=== PATIENT | female | born 1965 | race Asian ===

== ENCOUNTER 2017-11-11 08:30 | Emergency (ER) | payer OTHER ==
[2017-11-11 09:51] LABS: ABNORMAL IP MESSAGE 1; HEMATOCRIT 20.1 % (37.0-47.0); MEAN CORPUSCULAR HEMOGLOBIN 31.3 pg (29.0-33.0); MEAN CORPUSCULAR HGB CONC 34.8 g/dl (32.0-37.0); MEAN CORPUSCULAR VOLUME 89.7 fl (82.0-101.0); MEAN PLATELET VOLUME 9.4 fl (7.4-10.4); RED BLOOD COUNT 2.24 10^6/ul (4.20-5.40)
[2017-11-11 09:51] LABS: WHITE BLOOD COUNT 2.5 10^3/ul (4.8-10.8)
[2017-11-11 09:57] LABS: POSITIVE DIFF @See below
[2017-11-11 10:02] LABS: ADD MAN DIFF? YES; PLATELET COUNT 28 10^3/UL (140-415)
[2017-11-11 10:17] LABS: INR 0.86; PROTIME 11.8 Sec (11.9-14.9); PT RATIO 0.9
[2017-11-11 10:18] LABS: PARTIAL THROMBOPLASTIN TIME 34.2 Sec (25.0-35.0)
[2017-11-11 10:21] LABS: ALANINE AMINOTRANSFERASE 72 IU/L (13-69); ALBUMIN 4.3 g/dl (3.3-4.9); ALBUMIN/GLOBULIN RATIO 1.48; ALKALINE PHOSPHATASE 175 IU/L (42-121); ANION GAP 14 (8-16); ASPARTATE AMINO TRANSFERASE 41 IU/L (15-46); BILIRUBIN,INDIRECT 0.3 mg/dl (0-1.1); BILIRUBIN,TOTAL 0.3 mg/dl (0.2-1.3); BLOOD UREA NITROGEN 17 mg/dl (7-20); CALCIUM 9.5 mg/dl (8.4-10.2); CARBON DIOXIDE 28 mmol/L (21-31); CHLORIDE 106 mmol/L (97-110); CREATININE 0.49 mg/dl (0.44-1.00); GLUCOSE 86 mg/dl (70-220); SODIUM 144 mmol/L (135-144); TOTAL PROTEIN 7.2 g/dl (6.1-8.1)
[2017-11-11 10:44] LABS: ANISOCYTOSIS 2+ (0-0); BAND NEUTROPHILS % (M) 3 % (0-4); BASOPHILS % (M) 1 % (0-2); LYMPHOCYTES #M 1.7 10^3/ul (0.8-2.9); LYMPHOCYTES % (M) 71 % (15-51); MICROCYTOSIS 2+ (0-0); MONOCYTES % (M) 2 % (0-11); PLATELET ESTIMATE SIG DECREASED; POLYCHROMASIA 3+ (0-0); RBC MORPHOLOGY COMMENT @See below; REACTIVE LYMPHOCYTES% (M) 2 % (0-0); SEG NEUT #M 0.5 10^3/ul (1.6-7.5); SEGMENTED NEUTROPHILS (M) % 21 % (39-77); SMUDGE%M 3 % (0-0); WBC MORPHOLOGY COMMENT @See below
[2017-11-11 11:36] LABS: IMMEDIATE SPIN CROSSMATCH 1 1
[2017-11-11 15:23] LABS: TYPE AND SCREEN 1
== END 2017-11-11 16:44 | disposition home or self-care (01) ==
LOC: E/R 08:30
PROVIDERS: Pediatrics
DX: D64.9 Anemia, unspecified (principal); D69.6 Thrombocytopenia, unspecified; I10 Essential (primary) hypertension; R40.2142 Coma scale, eyes open, spontaneous, at arrival to emergency department; R40.2252 Coma scale, best verbal response, oriented, at arrival to emergency department; R40.2362 Coma scale, best motor response, obeys commands, at arrival to emergency department
CPT/HCPCS: 36415; 36430; 80053; 85025; 85610; 85730; 86644; 86850; 86900; 86901; 86920; 99285-25

== ENCOUNTER 2017-11-22 09:02 | Emergency (ER) | payer OTHER ==
[2017-11-22 11:20] LABS: ABNORMAL IP MESSAGE 1; HEMATOCRIT 25.5 % (37.0-47.0); MEAN CORPUSCULAR HEMOGLOBIN 30.6 pg (29.0-33.0); MEAN CORPUSCULAR HGB CONC 35.3 g/dl (32.0-37.0); MEAN CORPUSCULAR VOLUME 86.7 fl (82.0-101.0); MEAN PLATELET VOLUME 10.2 fl (7.4-10.4); RED BLOOD COUNT 2.94 10^6/ul (4.20-5.40)
[2017-11-22 11:20] LABS: WHITE BLOOD COUNT 3.6 10^3/ul (4.8-10.8)
[2017-11-22 11:29] LABS: PLATELET COUNT 14 10^3/UL (140-415)
[2017-11-22 11:30] LABS: ADD MAN DIFF? YES; POSITIVE DIFF @See below
[2017-11-22 12:29] LABS: ANISOCYTOSIS 2+ (0-0); BAND NEUTROPHILS #M 0.1 10^3/ul (0.0-0.6); BAND NEUTROPHILS % (M) 4 % (0-4); ERYTHROBLAST% (NRBC) (M) 1 % (0-0); LYMPHOCYTES % (M) 58 % (15-51); MICROCYTOSIS 1+ (0-0); MONOCYTE #M 0.1 10^3/ul (0.3-0.9); MONOCYTES % (M) 4 % (0-11); MYELOCYTES % (M) 1 % (0-0); PLATELET ESTIMATE SIG DECREASED; PLATELET MORPHOLOGY COMMENT @See below; SEG NEUT #M 1.2 10^3/ul (1.6-7.5); SEGMENTED NEUTROPHILS (M) % 33 % (39-77); SMUDGE%M 4 % (0-0)
[2017-11-22 14:35] LABS: IMMEDIATE SPIN CROSSMATCH 1 2
[2017-11-22 17:53] LABS: TYPE AND SCREEN 1
[2017-11-22] MEDS: HYDROCODONE/APAP (5/325) TAB PO (19:04)
== END 2017-11-22 20:30 | disposition left against medical advice (07) ==
LOC: E/R 09:02
DX: D64.9 Anemia, unspecified (principal); R40.2252 Coma scale, best verbal response, oriented, at arrival to emergency department; D69.6 Thrombocytopenia, unspecified; I10 Essential (primary) hypertension; R40.2142 Coma scale, eyes open, spontaneous, at arrival to emergency department; R40.2362 Coma scale, best motor response, obeys commands, at arrival to emergency department
CPT/HCPCS: 36415; 36430; 85025; 86644; 86850; 86900; 86901; 86920; 86945; 99285-25

== ENCOUNTER 2017-12-01 09:57 | Emergency (ER) | payer OTHER ==
[2017-12-01 10:54] LABS: INR 0.75; PROTIME 10.6 Sec (11.9-14.9); PT RATIO 0.8
[2017-12-01 10:55] LABS: PARTIAL THROMBOPLASTIN TIME 33.8 Sec (25.0-35.0)
[2017-12-01 10:56] LABS: WHITE BLOOD COUNT 2.9 10^3/ul (4.8-10.8)
[2017-12-01 10:56] LABS: ABNORMAL IP MESSAGE 1; ANION GAP 17 (8-16); BLOOD UREA NITROGEN 22 mg/dl (7-20); CALCIUM 10.1 mg/dl (8.4-10.2); CARBON DIOXIDE 24 mmol/L (21-31); CHLORIDE 108 mmol/L (97-110); CREATININE 0.53 mg/dl (0.44-1.00); GLUCOSE 111 mg/dl (70-220); HEMATOCRIT 28.9 % (37.0-47.0); HEMOGLOBIN 10.3 g/dl (12.0-16.0); MEAN CORPUSCULAR HEMOGLOBIN 31.6 pg (29.0-33.0); MEAN CORPUSCULAR HGB CONC 35.6 g/dl (32.0-37.0); MEAN CORPUSCULAR VOLUME 88.7 fl (82.0-101.0); MEAN PLATELET VOLUME 9.7 fl (7.4-10.4); POTASSIUM 4.1 mmol/L (3.5-5.1); RED BLOOD COUNT 3.26 10^6/ul (4.20-5.40); RED CELL DISTRIBUTION WIDTH 15.8 % (11.5-14.5); SODIUM 145 mmol/L (135-144)
[2017-12-01 10:58] LABS: ADD MAN DIFF? YES; PLATELET COUNT 25 10^3/UL (140-415); POSITIVE DIFF @See below
[2017-12-01] MEDS: ACETAMINOPHEN 325 MG TAB PO (11:20)
[2017-12-01] MEDS: SOD CHLORIDE 0.9% 250 ML IV* (11:21)
[2017-12-01 11:36] LABS: ANISOCYTOSIS 1+ (0-0); BAND NEUTROPHILS % (M) 2 % (0-4); EOSINOPHILS % (M) 1 % (0-7); ERYTHROBLAST% (NRBC) (M) 1 % (0-0); LYMPHOCYTES #M 1.6 10^3/ul (0.8-2.9); LYMPHOCYTES % (M) 57 % (15-51); MICROCYTOSIS 1+ (0-0); MONOCYTE #M 0.2 10^3/ul (0.3-0.9); MONOCYTES % (M) 8 % (0-11); PLATELET ESTIMATE SIG DECREASED; POLYCHROMASIA 1+ (0-0); RBC MORPHOLOGY COMMENT @See below; REACTIVE LYMPHOCYTES% (M) 2 % (0-0); SEG NEUT #M 0.9 10^3/ul (1.6-7.5); SEGMENTED NEUTROPHILS (M) % 30 % (39-77); SMUDGE%M 26 % (0-0); WBC MORPHOLOGY COMMENT @See below
[2017-12-01 17:35] LABS: TYPE AND SCREEN 1 1
== END 2017-12-01 19:09 | disposition home or self-care (01) ==
LOC: E/R 09:57
DX: D69.6 Thrombocytopenia, unspecified (principal); R40.2252 Coma scale, best verbal response, oriented, at arrival to emergency department; D72.819 Decreased white blood cell count, unspecified; D61.818 Other pancytopenia; K06.8 Other specified disorders of gingiva and edentulous alveolar ridge; R79.89 Other specified abnormal findings of blood chemistry; R40.2142 Coma scale, eyes open, spontaneous, at arrival to emergency department; R40.2362 Coma scale, best motor response, obeys commands, at arrival to emergency department; I10 Essential (primary) hypertension
CPT/HCPCS: 36415; 36430; 80048; 85025; 85610; 85730; 86850; 86900; 86901; 93005; 99285-25

== ENCOUNTER 2017-12-08 12:33 | Emergency (ER) | payer OTHER ==
[2017-12-08 13:00] LABS: WHITE BLOOD COUNT 3.7 10^3/ul (4.8-10.8)
[2017-12-08 13:00] LABS: ABNORMAL IP MESSAGE 1; HEMATOCRIT 26.8 % (37.0-47.0); HEMOGLOBIN 9.5 g/dl (12.0-16.0); MEAN CORPUSCULAR HEMOGLOBIN 31.4 pg (29.0-33.0); MEAN CORPUSCULAR HGB CONC 35.4 g/dl (32.0-37.0); MEAN CORPUSCULAR VOLUME 88.4 fl (82.0-101.0); MEAN PLATELET VOLUME 11.1 fl (7.4-10.4); RED BLOOD COUNT 3.03 10^6/ul (4.20-5.40); RED CELL DISTRIBUTION WIDTH 16.2 % (11.5-14.5)
[2017-12-08 13:04] LABS: POSITIVE DIFF @See below
[2017-12-08 13:05] LABS: ADD MAN DIFF? YES; PLATELET COUNT 8 10^3/UL (140-415)
[2017-12-08] MEDS ORDERED: SOD CHLORIDE 0.9% 250 ML IV (13:09)
[2017-12-08 13:38] LABS: ANISOCYTOSIS 2+ (0-0); BAND NEUTROPHILS #M 0.2 10^3/ul (0.0-0.6); BAND NEUTROPHILS % (M) 7 % (0-4); LYMPHOCYTES #M 1.8 10^3/ul (0.8-2.9); LYMPHOCYTES % (M) 50 % (15-51); MICROCYTOSIS 2+ (0-0); MONOCYTE #M 0.1 10^3/ul (0.3-0.9); MONOCYTES % (M) 5 % (0-11); PLATELET ESTIMATE SIG DECREASED; SEG NEUT #M 1.4 10^3/ul (1.6-7.5); SEGMENTED NEUTROPHILS (M) % 38 % (39-77); SMUDGE%M 2 % (0-0)
[2017-12-08] MEDS: DIPHENHYDRAMINE 50 MG INJ IV ×2 (19:01→22:02)
[2017-12-09 00:22] LABS: TYPE AND SCREEN 1 1
== END 2017-12-09 05:40 | disposition home or self-care (01) ==
LOC: E/R 12-09 05:40
DX: D69.6 Thrombocytopenia, unspecified (principal); I10 Essential (primary) hypertension
CPT/HCPCS: 36430; 85025; 86644; 86850; 86900; 86901; 86945; 96374; 96376; 99285-25

== ENCOUNTER 2017-12-22 17:27 | Emergency (ER) | payer OTHER ==
[2017-12-22] MEDS: SOD CHLORIDE 0.9% 250 ML IV (17:44)
[2017-12-22 18:03] LABS: WHITE BLOOD COUNT 3.5 10^3/ul (4.8-10.8)
[2017-12-22 18:03] LABS: ABNORMAL IP MESSAGE 1; HEMATOCRIT 19.6 % (37.0-47.0); MEAN CORPUSCULAR HGB CONC 35.7 g/dl (32.0-37.0); MEAN CORPUSCULAR VOLUME 89.5 fl (82.0-101.0); MEAN PLATELET VOLUME 11.5 fl (7.4-10.4); NUCLEATED RED BLOOD CELLS% 0.6 /100WBC (0.0-0.0); RED BLOOD COUNT 2.19 10^6/ul (4.20-5.40); RED CELL DISTRIBUTION WIDTH 17.6 % (11.5-14.5)
[2017-12-22 18:12] LABS: POSITIVE DIFF @See below
[2017-12-22 18:13] LABS: ADD MAN DIFF? YES; PLATELET COUNT 11 10^3/UL (140-415)
[2017-12-22 18:20] LABS: ALANINE AMINOTRANSFERASE 56 IU/L (13-69); ALBUMIN 4.4 g/dl (3.3-4.9); ALBUMIN/GLOBULIN RATIO 1.29; ALKALINE PHOSPHATASE 176 IU/L (42-121); ANION GAP 12 (8-16); ASPARTATE AMINO TRANSFERASE 36 IU/L (15-46); BILIRUBIN,INDIRECT 0.6 mg/dl (0-1.1); BILIRUBIN,TOTAL 0.6 mg/dl (0.2-1.3); BLOOD UREA NITROGEN 20 mg/dl (7-20); CALCIUM 9.8 mg/dl (8.4-10.2); CARBON DIOXIDE 28 mmol/L (21-31); CHLORIDE 108 mmol/L (97-110); CREATININE 0.67 mg/dl (0.44-1.00); GLUCOSE 99 mg/dl (70-220); POTASSIUM 4.2 mmol/L (3.5-5.1); SODIUM 144 mmol/L (135-144); TOTAL PROTEIN 7.8 g/dl (6.1-8.1)
[2017-12-22 18:23] LABS: INR 0.83; PROTIME 11.5 Sec (11.9-14.9); PT RATIO 0.9
[2017-12-22 18:42] LABS: ANISOCYTOSIS 2+ (0-0); BAND NEUTROPHILS % (M) 2 % (0-4); LYMPHOCYTES #M 2.2 10^3/ul (0.8-2.9); LYMPHOCYTES % (M) 63 % (15-51); MICROCYTOSIS 1+ (0-0); MONOCYTES % (M) 2 % (0-11); PLATELET ESTIMATE SIG DECREASED; POLYCHROMASIA 1+ (0-0); SEG NEUT #M 1.2 10^3/ul (1.6-7.5); SEGMENTED NEUTROPHILS (M) % 34 % (39-77); SMUDGE%M 26 % (0-0)
[2017-12-22] MEDS: DIPHENHYDRAMINE 50 MG INJ IV ×3 (18:58→21:46)
[2017-12-22 19:06] LABS: TYPE AND SCREEN 1
[2017-12-22 21:11] LABS: IMMEDIATE SPIN CROSSMATCH 1 1
== END 2017-12-23 02:14 | disposition home or self-care (01) ==
LOC: E/R 12-23 02:14
DX: D69.6 Thrombocytopenia, unspecified (principal); D64.9 Anemia, unspecified; I10 Essential (primary) hypertension
CPT/HCPCS: 36430; 80053; 85025; 85610; 86644; 86850; 86900; 86901; 86920; 86945; 96374; 96376; 99285-25

== ENCOUNTER 2017-12-28 16:05 | Emergency (ER) | payer OTHER ==
[2017-12-28 18:45] LABS: ABNORMAL IP MESSAGE 1; HEMATOCRIT 25.9 % (37.0-47.0); HEMOGLOBIN 9.2 g/dl (12.0-16.0); MEAN CORPUSCULAR HEMOGLOBIN 31.7 pg (29.0-33.0); MEAN CORPUSCULAR HGB CONC 35.5 g/dl (32.0-37.0); MEAN CORPUSCULAR VOLUME 89.3 fl (82.0-101.0); MEAN PLATELET VOLUME 12.1 fl (7.4-10.4); RED CELL DISTRIBUTION WIDTH 16.2 % (11.5-14.5)
[2017-12-28 18:45] LABS: WHITE BLOOD COUNT 3.8 10^3/ul (4.8-10.8)
[2017-12-28 19:03] LABS: ADD MAN DIFF? YES; PLATELET COUNT 12 10^3/UL (140-415); POSITIVE DIFF @See below
[2017-12-28 19:05] LABS: ANION GAP 16 (8-16); BLOOD UREA NITROGEN 18 mg/dl (7-20); CARBON DIOXIDE 28 mmol/L (21-31); CHLORIDE 102 mmol/L (97-110); CREATININE 0.58 mg/dl (0.44-1.00); GLUCOSE 94 mg/dl (70-220); POTASSIUM 3.7 mmol/L (3.5-5.1); SODIUM 142 mmol/L (135-144)
[2017-12-28 19:56] LABS: PT RATIO 0.9
[2017-12-28 20:00] LABS: INR 0.87; PARTIAL THROMBOPLASTIN TIME 32.7 Sec (25.0-35.0); PROTIME 11.9 Sec (11.9-14.9)
[2017-12-28 20:19] LABS: ANISOCYTOSIS 2+ (0-0); BAND NEUTROPHILS #M 0.3 10^3/ul (0.0-0.6); BAND NEUTROPHILS % (M) 8 % (0-4); BASOPHILS % (M) 1 % (0-2); ERYTHROBLAST% (NRBC) (M) 1 % (0-0); GIANT THROMBO% (M) 1 % (0-0); LYMPHOCYTES #M 1.6 10^3/ul (0.8-2.9); LYMPHOCYTES % (M) 43 % (15-51); MICROCYTOSIS 2+ (0-0); MONOCYTE #M 0.1 10^3/ul (0.3-0.9); MONOCYTES % (M) 4 % (0-11); PLATELET ESTIMATE SIG DECREASED; SEG NEUT #M 1.7 10^3/ul (1.6-7.5); SEGMENTED NEUTROPHILS (M) % 44 % (39-77); SMUDGE%M 17 % (0-0)
[2017-12-28 23:04] LABS: TYPE AND SCREEN 1 1
[2017-12-28] MEDS: DIPHENHYDRAMINE 50 MG INJ IV (23:16)
[2017-12-28] MEDS: SOD CHLORIDE 0.9% 250 ML IV (23:16)
== END 2017-12-29 02:00 | disposition home or self-care (01) ==
LOC: E/R 12-29 02:00
DX: D61.818 Other pancytopenia (principal); D64.9 Anemia, unspecified; I10 Essential (primary) hypertension
CPT/HCPCS: 36415; 36430; 80048; 85025; 85610; 85730; 86850; 86900; 86901; 86945; 96374; 99285-25

== ENCOUNTER 2017-12-29 11:56 | Emergency (ER) | payer OTHER ==
[2017-12-29 13:17] LABS: ADD MAN DIFF? NO
[2017-12-29 13:53] LABS: WHITE BLOOD COUNT 3.4 10^3/ul (4.8-10.8)
[2017-12-29 13:53] LABS: ABNORMAL IP MESSAGE 1; BASOPHILS % 0.3 % (0.0-2.0); EOSINOPHILS % 0.3 % (0.0-7.0); HEMATOCRIT 24.8 % (37.0-47.0); HEMOGLOBIN 8.7 g/dl (12.0-16.0); IMMATURE GRANS #M 0.01 10^3/ul; IMMATURE GRANS % (M) 0.3 %; LYMPHOCYTES # 2.1 10^3/ul (0.8-2.9); LYMPHOCYTES % 60.4 % (15.0-51.0); MEAN CORPUSCULAR HEMOGLOBIN 31.1 pg (29.0-33.0); MEAN CORPUSCULAR HGB CONC 35.1 g/dl (32.0-37.0); MEAN CORPUSCULAR VOLUME 88.6 fl (82.0-101.0); MEAN PLATELET VOLUME 10.1 fl (7.4-10.4); MONOCYTE # 0.3 10^3/ul (0.3-0.9); NEUTROPHILS % 28.7 % (39.0-77.0); PLATELET COUNT 50 10^3/UL (140-415); POSITIVE DIFF @See below; RED CELL DISTRIBUTION WIDTH 16.7 % (11.5-14.5)
== END 2017-12-29 14:44 | disposition home or self-care (01) ==
LOC: E/R 11:56
DX: D61.818 Other pancytopenia (principal); I10 Essential (primary) hypertension
CPT/HCPCS: 85025; 99283

== ENCOUNTER 2018-01-05 18:50 | Emergency (ER) | payer SELFPAY, OTHER | END 2018-01-05 20:25 | disposition left against medical advice (07) | LOC: E/R 18:50 | DX: Z53.21 Procedure and treatment not carried out due to patient leaving prior to being seen by health care provider (principal) ==

== ENCOUNTER 2018-03-06 13:07 | Observation (INO) | payer OTHER ==
[2018-03-06 14:52] LABS: ADD MAN DIFF? NO
[2018-03-06 15:04] LABS: ABNORMAL IP MESSAGE 1; HEMATOCRIT 21.1 % (37.0-47.0); HEMOGLOBIN 7.1 g/dl (12.0-16.0); MEAN CORPUSCULAR HEMOGLOBIN 32.3 pg (29.0-33.0); MEAN CORPUSCULAR HGB CONC 33.6 g/dl (32.0-37.0); MEAN CORPUSCULAR VOLUME 95.9 fl (82.0-101.0); MEAN PLATELET VOLUME 10.3 fl (7.4-10.4); RED CELL DISTRIBUTION WIDTH 20.3 % (11.5-14.5)
[2018-03-06 15:04] LABS: WHITE BLOOD COUNT 2.7 10^3/ul (4.8-10.8)
[2018-03-06 15:20] LABS: POSITIVE DIFF @See below
[2018-03-06 15:21] LABS: ANION GAP 12 (8-16); BLOOD UREA NITROGEN 14 mg/dl (7-20); CALCIUM 9.7 mg/dl (8.4-10.2); CARBON DIOXIDE 30 mmol/L (21-31); CHLORIDE 109 mmol/L (97-110); CREATININE 0.85 mg/dl (0.44-1.00); GLUCOSE 100 mg/dl (70-220); POTASSIUM 3.8 mmol/L (3.5-5.1); SODIUM 147 mmol/L (135-144)
[2018-03-06 15:22] LABS: PLATELET COUNT 8 10^3/UL (140-415)
[2018-03-06 15:23] LABS: INR 0.81; PROTIME 11.2 Sec (11.9-14.9); PT RATIO 0.9
[2018-03-06 15:55] LABS: ANISOCYTOSIS 1+ (0-0); BAND NEUTROPHILS % (M) 2 % (0-4); BASOPHILS % (M) 1 % (0-2); EOSINOPHILS % (M) 1 % (0-7); HYPOCHROMASIA 2+ (0-0); LYMPHOCYTES #M 1.5 10^3/ul (0.8-2.9); LYMPHOCYTES % (M) 57 % (15-51); METAMYELOCYTES %M 1 % (0-0); MICROCYTOSIS 1+ (0-0); MONOCYTE #M 0.1 10^3/ul (0.3-0.9); MONOCYTES % (M) 5 % (0-11); MYELOCYTES % (M) 3 % (0-0); PLATELET ESTIMATE SIG DECREASED; SEG NEUT #M 0.8 10^3/ul (1.6-7.5); SEGMENTED NEUTROPHILS (M) % 30 % (39-77); SMUDGE%M 2 % (0-0)
[2018-03-06] MEDS ORDERED: ONDANSETRON 4 MG INJ IV (18:00)
[2018-03-06] MEDS ORDERED: ACETAMINOPHEN 325 MG TAB PO (18:00)
[2018-03-06] MEDS ORDERED: HYDROCODONE/APAP (5/325) TAB PO (18:00)
[2018-03-06] MEDS ORDERED: ALPRAZOLAM 1 MG TAB PO (18:00)
[2018-03-06] MEDS ORDERED: MAGNESIUM HYDROXIDE 30ML CUP PO (18:00)
[2018-03-06] MEDS ORDERED: NACL 0.9% 3 ML SYG IV (18:00)
[2018-03-06] MEDS: SOD CHLORIDE 0.9% 1,000 ML IV (18:37)
[2018-03-07] MEDS: DIPHENHYDRAMINE 50 MG INJ IV ×2 (00:04→10:10)
[2018-03-07] MEDS: ACETAMINOPHEN 325 MG TAB PO (00:04)
[2018-03-07 04:47] LABS: TYPE AND SCREEN 1
[2018-03-07] MEDS: PANTOPRAZOLE (EC) 40 MG TAB PO (05:36)
[2018-03-07 08:37] LABS: ABNORMAL IP MESSAGE 1; HEMATOCRIT 19.6 % (37.0-47.0); MEAN CORPUSCULAR HEMOGLOBIN 31.9 pg (29.0-33.0); MEAN CORPUSCULAR HGB CONC 33.2 g/dl (32.0-37.0); MEAN CORPUSCULAR VOLUME 96.1 fl (82.0-101.0); MEAN PLATELET VOLUME 9.4 fl (7.4-10.4); NUCLEATED RED BLOOD CELLS% 0.7 /100WBC (0.0-0.0); PLATELET COUNT 68 10^3/UL (140-415); RED BLOOD COUNT 2.04 10^6/ul (4.20-5.40); RED CELL DISTRIBUTION WIDTH 20.4 % (11.5-14.5)
[2018-03-07 08:37] LABS: WHITE BLOOD COUNT 3.1 10^3/ul (4.8-10.8)
[2018-03-07 08:47] LABS: ADD MAN DIFF? YES; HEMOGLOBIN 6.5 g/dl (12.0-16.0); POSITIVE DIFF @See below
[2018-03-07 08:59] LABS: ANION GAP 9 (8-16); BLOOD UREA NITROGEN 13 mg/dl (7-20); CALCIUM 9.3 mg/dl (8.4-10.2); CARBON DIOXIDE 30 mmol/L (21-31); CHLORIDE 110 mmol/L (97-110); GLUCOSE 98 mg/dl (70-220); MAGNESIUM 1.8 mg/dl (1.7-2.5); PHOSPHORUS 4.2 mg/dl (2.5-4.9); POTASSIUM 4.2 mmol/L (3.5-5.1); SODIUM 145 mmol/L (135-144)
[2018-03-07 09:54] LABS: ANISOCYTOSIS 1+ (0-0); BAND NEUTROPHILS #M 0.2 10^3/ul (0.0-0.6); BAND NEUTROPHILS % (M) 8 % (0-4); ERYTHROBLAST% (NRBC) (M) 1 % (0-0); LYMPHOCYTES #M 1.3 10^3/ul (0.8-2.9); LYMPHOCYTES % (M) 44 % (15-51); MICROCYTOSIS 1+ (0-0); MONOCYTES % (M) 2 % (0-11); MYELOCYTES % (M) 1 % (0-0); PLATELET ESTIMATE DECREASED; SEG NEUT #M 1.4 10^3/ul (1.6-7.5); SEGMENTED NEUTROPHILS (M) % 45 % (39-77); SMUDGE%M 28 % (0-0)
[2018-03-07] MEDS: LORAZEPAM 0.5 MG TAB PO ×2 (10:10→18:12)
[2018-03-07] MEDS: DOCUSATE SODIUM 100 MG CAP PO (10:10)
[2018-03-07] MEDS: SOD CHLORIDE 0.9% 1,000 ML IV (12:49)
[2018-03-07 16:32] LABS: IMMEDIATE SPIN CROSSMATCH 1 4
[2018-03-07] MEDS: ZOLPIDEM 5 MG TAB PO (20:13)
[2018-03-07] MEDS: ALPRAZOLAM 0.5 MG TAB PO (21:17)
[2018-03-08 01:26] LABS: WHITE BLOOD COUNT 3.5 10^3/ul (4.8-10.8)
[2018-03-08 01:26] LABS: ABNORMAL IP MESSAGE 1; HEMOGLOBIN 10.3 g/dl (12.0-16.0); MEAN CORPUSCULAR HEMOGLOBIN 31.8 pg (29.0-33.0); MEAN CORPUSCULAR HGB CONC 34.3 g/dl (32.0-37.0); MEAN CORPUSCULAR VOLUME 92.6 fl (82.0-101.0); MEAN PLATELET VOLUME 9.5 fl (7.4-10.4); NUCLEATED RED BLOOD CELLS% 0.6 /100WBC (0.0-0.0); PLATELET COUNT 65 10^3/UL (140-415); RED BLOOD COUNT 3.24 10^6/ul (4.20-5.40); RED CELL DISTRIBUTION WIDTH 17.4 % (11.5-14.5)
[2018-03-08 01:40] LABS: ADD MAN DIFF? YES; POSITIVE DIFF @See below
[2018-03-08 03:43] LABS: ANISOCYTOSIS 1+ (0-0); BAND NEUTROPHILS #M 0.3 10^3/ul (0.0-0.6); BAND NEUTROPHILS % (M) 9 % (0-4); EOSINOPHILS % (M) 1 % (0-7); ERYTHROBLAST% (NRBC) (M) 1 % (0-0); LYMPHOCYTES #M 1.6 10^3/ul (0.8-2.9); LYMPHOCYTES % (M) 46 % (15-51); MICROCYTOSIS 1+ (0-0); MONOCYTE #M 0.3 10^3/ul (0.3-0.9); MONOCYTES % (M) 11 % (0-11); MYELOCYTES % (M) 1 % (0-0); PLATELET ESTIMATE DECREASED; PROMYELOCYTES % (M) 2 % (0-0); REACTIVE LYMPHOCYTES #M 0.1 10^3/ul (0.0-0.0); REACTIVE LYMPHOCYTES% (M) 5 % (0-0); SEG NEUT #M 0.9 10^3/ul (1.6-7.5); SEGMENTED NEUTROPHILS (M) % 25 % (39-77); SMUDGE%M 8 % (0-0)
[2018-03-08] MEDS: PANTOPRAZOLE (EC) 40 MG TAB PO (05:47)
== END 2018-03-08 14:00 | disposition home or self-care (01) ==
LOC: E/R 13:07 → PP2 16:50
DX: D46.9 Myelodysplastic syndrome, unspecified (principal); D69.6 Thrombocytopenia, unspecified; F41.9 Anxiety disorder, unspecified
CPT/HCPCS: 36415; 36430; 80048; 83735; 84100; 85025; 85610; 85730; 86850; 86900; 86901; 86920; 93005; 99285-25; G0378

== ENCOUNTER 2018-03-20 18:22 | Inpatient (IN) | payer OTHER ==
[2018-03-20 21:01] LABS: ABNORMAL IP MESSAGE 1; HEMATOCRIT 27.6 % (37.0-47.0); HEMOGLOBIN 9.5 g/dl (12.0-16.0); MEAN CORPUSCULAR HEMOGLOBIN 32.4 pg (29.0-33.0); MEAN CORPUSCULAR HGB CONC 34.4 g/dl (32.0-37.0); MEAN CORPUSCULAR VOLUME 94.2 fl (82.0-101.0); MEAN PLATELET VOLUME 10.4 fl (7.4-10.4); NUCLEATED RED BLOOD CELLS% 0.5 /100WBC (0.0-0.0); RED BLOOD COUNT 2.93 10^6/ul (4.20-5.40); RED CELL DISTRIBUTION WIDTH 17.7 % (11.5-14.5)
[2018-03-20 21:01] LABS: WHITE BLOOD COUNT 3.8 10^3/ul (4.8-10.8)
[2018-03-20 21:05] LABS: ADD MAN DIFF? YES; PLATELET COUNT 13 10^3/UL (140-415); POSITIVE DIFF @See below
[2018-03-20 21:08] LABS: ALANINE AMINOTRANSFERASE 60 IU/L (13-69); ALBUMIN 4.2 g/dl (3.3-4.9); ALBUMIN/GLOBULIN RATIO 1.16; ALKALINE PHOSPHATASE 164 IU/L (42-121); ANION GAP 9 (5-13); ASPARTATE AMINO TRANSFERASE 38 IU/L (15-46); BILIRUBIN,INDIRECT 0.4 mg/dl (0-1.1); BILIRUBIN,TOTAL 0.4 mg/dl (0.2-1.3); BLOOD UREA NITROGEN 20 mg/dl (7-20); CALCIUM 9.6 mg/dl (8.4-10.2); CARBON DIOXIDE 28 mmol/L (21-31); CHLORIDE 104 mmol/L (97-110); CREATININE 1.23 mg/dl (0.44-1.00); Estimated GFR 46 mL/min (>60); GLUCOSE 109 mg/dl (70-220); POTASSIUM 4.1 mmol/L (3.5-5.1); SODIUM 141 mmol/L (135-144); TOTAL PROTEIN 7.8 g/dl (6.1-8.1)
[2018-03-20 21:12] LABS: INR 0.83; PROTIME 11.5 Sec (11.9-14.9); PT RATIO 0.9
[2018-03-20 21:13] LABS: PARTIAL THROMBOPLASTIN TIME 32.6 Sec (23.0-35.0)
[2018-03-20 21:38] LABS: ANISOCYTOSIS 1+ (0-0); BAND NEUTROPHILS #M 0.2 10^3/ul (0.0-0.6); BAND NEUTROPHILS % (M) 6 % (0-4); BASOPHILS % (M) 1 % (0-2); GIANT THROMBO% (M) 1 % (0-0); LYMPHOCYTES #M 1.8 10^3/ul (0.8-2.9); LYMPHOCYTES % (M) 49 % (15-51); MICROCYTOSIS 1+ (0-0); MONOCYTE #M 0.1 10^3/ul (0.3-0.9); MONOCYTES % (M) 3 % (0-11); PLATELET ESTIMATE SIG DECREASED; POLYCHROMASIA 2+ (0-0); SEG NEUT #M 1.6 10^3/ul (1.6-7.5); SEGMENTED NEUTROPHILS (M) % 41 % (39-77); SMUDGE%M 12 % (0-0)
[2018-03-21] MEDS ORDERED: LORAZEPAM 0.5 MG TAB PO (03:00)
[2018-03-21] MEDS ORDERED: ZOLPIDEM 5 MG TAB PO (03:00)
[2018-03-21] MEDS ORDERED: ACETAMINOPHEN 325 MG TAB PO (03:00)
[2018-03-21] MEDS ORDERED: ONDANSETRON 4 MG INJ IV (03:00)
[2018-03-21] MEDS: DIPHENHYDRAMINE 50 MG INJ IV ×2 (03:18→09:44)
[2018-03-21 07:44] LABS: ABNORMAL IP MESSAGE 1; HEMATOCRIT 26.9 % (37.0-47.0); HEMOGLOBIN 9.1 g/dl (12.0-16.0); MEAN CORPUSCULAR HEMOGLOBIN 31.9 pg (29.0-33.0); MEAN CORPUSCULAR HGB CONC 33.8 g/dl (32.0-37.0); MEAN CORPUSCULAR VOLUME 94.4 fl (82.0-101.0); MEAN PLATELET VOLUME 10.3 fl (7.4-10.4); PLATELET COUNT 37 10^3/UL (140-415); RED BLOOD COUNT 2.85 10^6/ul (4.20-5.40); RED CELL DISTRIBUTION WIDTH 17.6 % (11.5-14.5)
[2018-03-21 07:44] LABS: WHITE BLOOD COUNT 3.5 10^3/ul (4.8-10.8)
[2018-03-21 07:48] LABS: POSITIVE DIFF @See below
[2018-03-21 07:52] LABS: ADD MAN DIFF? YES
[2018-03-21] MEDS: FERROUS SULFATE (EC) 325 MG TAB PO (08:54)
[2018-03-21] MEDS: DOCUSATE SODIUM 100 MG CAP PO (08:55)
[2018-03-21 09:18] LABS: TYPE AND SCREEN 1 1
[2018-03-21 09:22] LABS: ANISOCYTOSIS 2+ (0-0); BAND NEUTROPHILS #M 0.1 10^3/ul (0.0-0.6); BAND NEUTROPHILS % (M) 4 % (0-4); EOSINOPHILS % (M) 1 % (0-7); LYMPHOCYTES % (M) 59 % (15-51); MICROCYTOSIS 2+ (0-0); MONOCYTES % (M) 2 % (0-11); OVALOCYTES 1+ (0-0); PLATELET ESTIMATE DECREASED; POLYCHROMASIA 1+ (0-0); SEG NEUT #M 1.2 10^3/ul (1.6-7.5); SEGMENTED NEUTROPHILS (M) % 34 % (39-77); SMUDGE%M 26 % (0-0)
[2018-03-21 12:35] LABS: ADD MAN DIFF? NO
[2018-03-21 12:36] LABS: WHITE BLOOD COUNT 3.8 10^3/ul (4.8-10.8)
[2018-03-21 12:36] LABS: ABNORMAL IP MESSAGE 1; BASOPHILS % 0.3 % (0.0-2.0); EOSINOPHILS % 0.3 % (0.0-7.0); HEMATOCRIT 26.3 % (37.0-47.0); LYMPHOCYTES # 1.7 10^3/ul (0.8-2.9); LYMPHOCYTES % 44.2 % (15.0-51.0); MEAN CORPUSCULAR HEMOGLOBIN 32.4 pg (29.0-33.0); MEAN CORPUSCULAR HGB CONC 34.2 g/dl (32.0-37.0); MEAN CORPUSCULAR VOLUME 94.6 fl (82.0-101.0); MEAN PLATELET VOLUME 9.9 fl (7.4-10.4); MONOCYTE # 0.4 10^3/ul (0.3-0.9); MONOCYTES % 9.9 % (0.0-11.0); NEUTROPHIL # 1.7 10^3/ul (1.6-7.5); NEUTROPHILS % 44.5 % (39.0-77.0); PLATELET COUNT 61 10^3/UL (140-415); RED BLOOD COUNT 2.78 10^6/ul (4.20-5.40); RED CELL DISTRIBUTION WIDTH 17.7 % (11.5-14.5)
[2018-03-21 12:40] LABS: POSITIVE DIFF @See below
== END 2018-03-21 16:45 | disposition home or self-care (01) | DRG 813 ==
LOC: E/R 18:22 → 5EC 03-21 01:26
PROC: 30233R1 Transfusion of Nonautologous Platelets into Peripheral Vein, Percutaneous Approach (ICD-10-PCS; principal; 2018-03-21)
DX: D69.6 Thrombocytopenia, unspecified (principal); N17.9 Acute kidney failure, unspecified; B19.10 Unspecified viral hepatitis B without hepatic coma; D46.9 Myelodysplastic syndrome, unspecified; F41.9 Anxiety disorder, unspecified
CPT/HCPCS: 36415; 36430; 80053; 85025; 85610; 85730; 86644; 86850; 86900; 86901; 86945; 93005; 99217; 99285-25

== ENCOUNTER 2018-04-27 13:24 | Inpatient (IN) | payer OTHER ==
[2018-04-27 14:08] LABS: WHITE BLOOD COUNT 2.6 10^3/ul (4.8-10.8)
[2018-04-27 14:08] LABS: ABNORMAL IP MESSAGE 1; HEMATOCRIT 19.5 % (37.0-47.0); MEAN CORPUSCULAR HEMOGLOBIN 34.5 pg (29.0-33.0); MEAN CORPUSCULAR HGB CONC 34.9 g/dl (32.0-37.0); NUCLEATED RED BLOOD CELLS% 1.2 /100WBC (0.0-0.0); RED BLOOD COUNT 1.97 10^6/ul (4.20-5.40); RED CELL DISTRIBUTION WIDTH 21.5 % (11.5-14.5)
[2018-04-27 14:23] LABS: ANION GAP 8 (5-13); ASPARTATE AMINO TRANSFERASE 54 IU/L (15-46); BLOOD UREA NITROGEN 29 mg/dl (7-20); CALCIUM 9.8 mg/dl (8.4-10.2); CARBON DIOXIDE 28 mmol/L (21-31); CHLORIDE 105 mmol/L (97-110); CREATININE 0.57 mg/dl (0.44-1.00); Estimated GFR > 60 mL/min (>60); GLUCOSE 118 mg/dl (70-220); SODIUM 141 mmol/L (135-144)
[2018-04-27 14:24] LABS: ALANINE AMINOTRANSFERASE 113 IU/L (13-69); ALBUMIN 4.3 g/dl (3.3-4.9); ALBUMIN/GLOBULIN RATIO 1.38; ALKALINE PHOSPHATASE 198 IU/L (42-121); BILIRUBIN,INDIRECT 0.4 mg/dl (0-1.1); BILIRUBIN,TOTAL 0.4 mg/dl (0.2-1.3); TOTAL PROTEIN 7.4 g/dl (6.1-8.1)
[2018-04-27 14:25] LABS: INR 0.77; POSITIVE DIFF @See below; PROTIME 10.8 Sec (11.9-14.9); PT RATIO 0.8
[2018-04-27 14:26] LABS: PARTIAL THROMBOPLASTIN TIME 34.6 Sec (23.0-35.0)
[2018-04-27 14:27] LABS: HEMOGLOBIN 6.8 g/dl (12.0-16.0); PLATELET COUNT 9 10^3/UL (140-415)
[2018-04-27 14:28] LABS: ADD MAN DIFF? YES
[2018-04-27 14:37] LABS: TROPONIN-I < 0.012 ng/ml (0.000-0.120)
[2018-04-27] MEDS: SOD CHLORIDE 0.9% 250 ML IV (15:16)
[2018-04-27 15:41] LABS: ANISOCYTOSIS 2+ (0-0); BAND NEUTROPHILS #M 0.1 10^3/ul (0.0-0.6); BAND NEUTROPHILS % (M) 4 % (0-4); BASOPHILS % (M) 1 % (0-2); ERYTHROBLAST% (NRBC) (M) 2 % (0-0); GIANT THROMBO% (M) 1 % (0-0); LYMPHOCYTES #M 1.5 10^3/ul (0.8-2.9); LYMPHOCYTES % (M) 59 % (15-51); MICROCYTOSIS 2+ (0-0); MONOCYTE #M 0.1 10^3/ul (0.3-0.9); MONOCYTES % (M) 4 % (0-11); PLATELET ESTIMATE SIG DECREASED; POIKILOCYTOSIS 1+ (0-0); POLYCHROMASIA 3+ (0-0); PROMYELOCYTES % (M) 1 % (0-0); SEG NEUT #M 0.8 10^3/ul (1.6-7.5); SEGMENTED NEUTROPHILS (M) % 30 % (39-77); SMUDGE%M 12 % (0-0)
[2018-04-27] MEDS: DIPHENHYDRAMINE 50 MG INJ IV (15:42)
[2018-04-27 15:44] LABS: PATH REVIEW? YES
[2018-04-27] MEDS: KETOROLAC 15 MG INJ IV (16:50)
[2018-04-27] MEDS ORDERED: ACETAMINOPHEN 325 MG TAB PO ×2 (17:30→21:00)
[2018-04-27] MEDS ORDERED: ONDANSETRON 4 MG INJ IV ×2 (17:30→21:00)
[2018-04-27] MEDS ORDERED: DIPHENHYDRAMINE 50 MG INJ IV (21:00)
[2018-04-27] MEDS ORDERED: LORAZEPAM 0.5 MG TAB PO (21:00)
[2018-04-27] MEDS: ZOLPIDEM 5 MG TAB PO (21:49)
[2018-04-27] MEDS: DOCUSATE SODIUM 100 MG CAP PO (21:49)
[2018-04-27 23:33] LABS: IMMEDIATE SPIN CROSSMATCH 1 2
[2018-04-28 05:17] LABS: WHITE BLOOD COUNT 2.8 10^3/ul (4.8-10.8)
[2018-04-28 05:17] LABS: ABNORMAL IP MESSAGE 1; HEMATOCRIT 28.2 % (37.0-47.0); HEMOGLOBIN 9.4 g/dl (12.0-16.0); MEAN CORPUSCULAR HEMOGLOBIN 31.4 pg (29.0-33.0); MEAN CORPUSCULAR HGB CONC 33.3 g/dl (32.0-37.0); MEAN CORPUSCULAR VOLUME 94.3 fl (82.0-101.0); MEAN PLATELET VOLUME 10.6 fl (7.4-10.4); RED BLOOD COUNT 2.99 10^6/ul (4.20-5.40); RED CELL DISTRIBUTION WIDTH 19.3 % (11.5-14.5)
[2018-04-28 05:18] LABS: ADD MAN DIFF? YES; POSITIVE DIFF @See below
[2018-04-28 05:20] LABS: PLATELET COUNT 30 10^3/UL (140-415)
[2018-04-28 05:40] LABS: ANION GAP 7 (5-13); BLOOD UREA NITROGEN 25 mg/dl (7-20); CALCIUM 9.5 mg/dl (8.4-10.2); CARBON DIOXIDE 29 mmol/L (21-31); CHLORIDE 109 mmol/L (97-110); CREATININE 0.54 mg/dl (0.44-1.00); Estimated GFR > 60 mL/min (>60); GLUCOSE 94 mg/dl (70-220); POTASSIUM 4.1 mmol/L (3.5-5.1); SODIUM 145 mmol/L (135-144)
[2018-04-28 06:59] LABS: ANISOCYTOSIS 1+ (0-0); BASOPHILS % (M) 1 % (0-2); BURR CELLS 1+ (0-0); GIANT THROMBO% (M) 1 % (0-0); LYMPHOCYTES #M 1.8 10^3/ul (0.8-2.9); LYMPHOCYTES % (M) 65 % (15-51); MICROCYTOSIS 1+ (0-0); MONOCYTES % (M) 3 % (0-11); PLATELET ESTIMATE SIG DECREASED; POIKILOCYTOSIS 1+ (0-0); POLYCHROMASIA 1+ (0-0); REACTIVE LYMPHOCYTES #M 0.1 10^3/ul (0.0-0.0); REACTIVE LYMPHOCYTES% (M) 4 % (0-0); SEGMENTED NEUTROPHILS (M) % 27 % (39-77); SMUDGE%M 27 % (0-0)
[2018-04-28] MEDS: DOCUSATE SODIUM 100 MG CAP PO (09:12)
[2018-04-28] MEDS: FERROUS SULFATE (EC) 325 MG TAB PO (09:13)
[2018-04-28] MEDS ORDERED: CALCIUM CARBONATE 500 MG CHEW TAB PO (12:00)
[2018-04-28 14:36] LABS: TYPE AND SCREEN 1
[2018-04-28 16:07] LABS: WHITE BLOOD COUNT 3.2 10^3/ul (4.8-10.8)
[2018-04-28 16:07] LABS: ABNORMAL IP MESSAGE 1; HEMATOCRIT 28.2 % (37.0-47.0); HEMOGLOBIN 9.4 g/dl (12.0-16.0); MEAN CORPUSCULAR HEMOGLOBIN 31.2 pg (29.0-33.0); MEAN CORPUSCULAR HGB CONC 33.3 g/dl (32.0-37.0); MEAN CORPUSCULAR VOLUME 93.7 fl (82.0-101.0); MEAN PLATELET VOLUME 9.3 fl (7.4-10.4); PLATELET COUNT 47 10^3/UL (140-415); RED BLOOD COUNT 3.01 10^6/ul (4.20-5.40); RED CELL DISTRIBUTION WIDTH 19.5 % (11.5-14.5)
[2018-04-28 16:17] LABS: ADD MAN DIFF? YES; POSITIVE DIFF @See below
[2018-04-28 16:53] LABS: ANISOCYTOSIS 2+ (0-0); BAND NEUTROPHILS % (M) 1 % (0-4); LYMPHOCYTES #M 1.8 10^3/ul (0.8-2.9); LYMPHOCYTES % (M) 57 % (15-51); MICROCYTOSIS 1+ (0-0); MONOCYTES % (M) 3 % (0-11); PLATELET ESTIMATE SIG DECREASED; SEG NEUT #M 1.2 10^3/ul (1.6-7.5); SEGMENTED NEUTROPHILS (M) % 39 % (39-77); SMUDGE%M 34 % (0-0)
== END 2018-04-28 17:50 | disposition home or self-care (01) | DRG 812 ==
LOC: E/R 13:24 → MS1 17:05
PROVIDERS: Pediatrics Neonatal-Perinatal Medicine
PROC: 30233N1 Transfusion of Nonautologous Red Blood Cells into Peripheral Vein, Percutaneous Approach (ICD-10-PCS; principal; 2018-04-27)
PROC: 30233R1 Transfusion of Nonautologous Platelets into Peripheral Vein, Percutaneous Approach (ICD-10-PCS; 2018-04-27)
PROC: 30233R1 Transfusion of Nonautologous Platelets into Peripheral Vein, Percutaneous Approach (ICD-10-PCS; 2018-04-28)
DX: D46.9 Myelodysplastic syndrome, unspecified (principal); B18.1 Chronic viral hepatitis B without delta-agent; D69.6 Thrombocytopenia, unspecified; I10 Essential (primary) hypertension; F41.9 Anxiety disorder, unspecified
CPT/HCPCS: 36415; 36430; 80048; 80053; 84484; 85025; 85610; 85730; 86644; 86850; 86900; 86901; 86920; 93005; 96374; 96375; 99291-25

== ENCOUNTER 2018-07-08 10:25 | Inpatient (IN) | payer OTHER ==
[2018-07-08] MEDS: OLANZAPINE (ODT) 5 MG TAB ODT (11:15)
[2018-07-08 11:16] LABS: ABNORMAL IP MESSAGE 1; HEMATOCRIT 23.1 % (37.0-47.0); HEMOGLOBIN 7.4 g/dl (12.0-16.0); MEAN CORPUSCULAR HEMOGLOBIN 30.6 pg (29.0-33.0); MEAN CORPUSCULAR VOLUME 95.5 fl (82.0-101.0); MEAN PLATELET VOLUME 9.4 fl (7.4-10.4); NUCLEATED RED BLOOD CELLS% 0.6 /100WBC (0.0-0.0); RED BLOOD COUNT 2.42 10^6/ul (4.20-5.40); RED CELL DISTRIBUTION WIDTH 16.1 % (11.5-14.5)
[2018-07-08 11:16] LABS: WHITE BLOOD COUNT 3.3 10^3/ul (4.8-10.8)
[2018-07-08 11:27] LABS: ADD MAN DIFF? YES; PLATELET COUNT 9 10^3/UL (140-415); POSITIVE DIFF @See below
[2018-07-08 11:34] LABS: ALANINE AMINOTRANSFERASE 98 IU/L (13-69); ALBUMIN 4.4 g/dl (3.3-4.9); ALBUMIN/GLOBULIN RATIO 1.12; ALKALINE PHOSPHATASE 155 IU/L (42-121); ANION GAP 10 (5-13); ASPARTATE AMINO TRANSFERASE 68 IU/L (15-46); BILIRUBIN,INDIRECT 0.9 mg/dl (0-1.1); BILIRUBIN,TOTAL 0.9 mg/dl (0.2-1.3); BLOOD UREA NITROGEN 17 mg/dl (7-20); CARBON DIOXIDE 30 mmol/L (21-31); CHLORIDE 104 mmol/L (97-110); CREATININE 0.63 mg/dl (0.44-1.00); Estimated GFR > 60 mL/min (>60); GLUCOSE 97 mg/dl (70-220); SODIUM 144 mmol/L (135-144); TOTAL PROTEIN 8.3 g/dl (6.1-8.1)
[2018-07-08 11:35] LABS: ACETAMINOPHEN < 10.0 ug/ml (10.0-30.0)
[2018-07-08 11:36] LABS: ETHANOL < 10.0 mg/dl (0-0); SALICYLATE < 1.0 mg/dl (5.0-30.0)
[2018-07-08 11:39] LABS: ADD UMIC YES; UR ASCORBIC ACID NEGATIVE (NEGATIVE); UR BACTERIA FEW /HPF (NONE SEEN); UR BILIRUBIN (Dip) NEGATIVE (NEGATIVE); UR BLOOD (Dip) 2+ mg/dL (NEGATIVE); UR CALCIUM OXALATE CRYSTAL FEW /HPF (NONE SEEN); UR CLARITY SLIGHTLY CLOUDY (CLEAR); UR COLOR YELLOW (YELLOW); UR GLUCOSE (Dip) 1+ mg/dL (NEGATIVE); UR KETONES (Dip) 1+ mg/dL (NEGATIVE); UR LEUKOCYTE ESTERASE (Dip) NEGATIVE Leu/ul (NEGATIVE); UR MUCUS MANY /HPF (NONE SEEN); UR NITRITE (Dip) NEGATIVE (NEGATIVE); UR RBC 5 /HPF (0-5); UR SPECIFIC GRAVITY (Dip) 1.024 (1.003-1.030); UR SQUAMOUS EPITHELIAL CELL FEW /HPF (FEW); UR TOTAL PROTEIN (Dip) NEGATIVE (NEGATIVE); UR UROBILINOGEN (Dip) 1+ mg/dL (NEGATIVE); UR WBC 4 /HPF (0-5)
[2018-07-08 11:51] LABS: AMPHETAMINE/METHAMPHETAMINE Negative (NEGATIVE); BARBITURATES Negative (NEGATIVE); BENZODIAZEPINES Negative (NEGATIVE); CANNABINOIDS Negative (NEGATIVE); COCAINE Negative (NEGATIVE); OPIATES Negative (NEGATIVE)
[2018-07-08 12:10] LABS: TYPE AND SCREEN 1
[2018-07-08 12:20] LABS: ANISOCYTOSIS 2+ (0-0); BAND NEUTROPHILS % (M) 2 % (0-4); ERYTHROBLAST% (NRBC) (M) 1 % (0-0); LYMPHOCYTES % (M) 62 % (15-51); MICROCYTOSIS 2+ (0-0); MONOCYTE #M 0.3 10^3/ul (0.3-0.9); MONOCYTES % (M) 10 % (0-11); PLATELET ESTIMATE SIG DECREASED; POLYCHROMASIA 3+ (0-0); RBC MORPHOLOGY COMMENT @See below; REACTIVE LYMPHOCYTES% (M) 2 % (0-0); SEG NEUT #M 0.8 10^3/ul (1.6-7.5); SEGMENTED NEUTROPHILS (M) % 24 % (39-77); SMUDGE%M 3 % (0-0); WBC MORPHOLOGY COMMENT @See below
[2018-07-08] MEDS ORDERED: ACETAMINOPHEN 325 MG TAB PO (12:30)
[2018-07-08] MEDS ORDERED: ONDANSETRON 4 MG INJ IV ×2 (12:30→17:30)
[2018-07-08 13:49] LABS: ETHANOL < 10.0 mg/dl (0-0); SALICYLATE < 1.0 mg/dl (5.0-30.0)
[2018-07-08 13:49] LABS: ACETAMINOPHEN < 10.0 ug/ml (10.0-30.0)
[2018-07-08] MEDS ORDERED: LORAZEPAM 2 MG INJ IM (17:30)
[2018-07-08] MEDS: POTASSIUM CHLORIDE 100 ML IVPB ×2 (18:49→19:30)
[2018-07-08] MEDS: ZOLPIDEM 5 MG TAB PO (22:40)
[2018-07-08] MEDS: LORAZEPAM 1 MG TAB PO (22:46)
[2018-07-09] MEDS: POTASSIUM CHLORIDE 100 ML IVPB (04:05)
[2018-07-09] MEDS: NACL 0.9% 3 ML SYG IV (05:40)
[2018-07-09] MEDS: PANTOPRAZOLE 40 MG INJ IV (05:40)
[2018-07-09] MEDS: ACETAMINOPHEN 325 MG TAB PO (06:00)
[2018-07-09 08:56] LABS: ADD MAN DIFF? NO
[2018-07-09 09:00] LABS: ABNORMAL IP MESSAGE 1; HEMATOCRIT 20.6 % (37.0-47.0); MEAN CORPUSCULAR HGB CONC 32.5 g/dl (32.0-37.0); MEAN CORPUSCULAR VOLUME 95.4 fl (82.0-101.0); MEAN PLATELET VOLUME 9.8 fl (7.4-10.4); PLATELET COUNT 70 10^3/UL (140-415); RED BLOOD COUNT 2.16 10^6/ul (4.20-5.40); RED CELL DISTRIBUTION WIDTH 15.8 % (11.5-14.5)
[2018-07-09 09:12] LABS: POSITIVE DIFF @See below
[2018-07-09 09:14] LABS: HEMOGLOBIN 6.7 g/dl (12.0-16.0); PATH REVIEW? YES
[2018-07-09 09:17] LABS: ANION GAP 4 (5-13); BLOOD UREA NITROGEN 17 mg/dl (7-20); CALCIUM 9.2 mg/dl (8.4-10.2); CARBON DIOXIDE 32 mmol/L (21-31); CHLORIDE 107 mmol/L (97-110); CREATININE 0.63 mg/dl (0.44-1.00); Estimated GFR > 60 mL/min (>60); GLUCOSE 124 mg/dl (70-220); POTASSIUM 3.4 mmol/L (3.5-5.1); SODIUM 143 mmol/L (135-144)
[2018-07-09 09:18] LABS: ALANINE AMINOTRANSFERASE 97 IU/L (13-69); ALBUMIN 3.6 g/dl (3.3-4.9); ALBUMIN/GLOBULIN RATIO 1.16; ALKALINE PHOSPHATASE 125 IU/L (42-121); ASPARTATE AMINO TRANSFERASE 59 IU/L (15-46); BILIRUBIN,INDIRECT 0.6 mg/dl (0-1.1); BILIRUBIN,TOTAL 0.6 mg/dl (0.2-1.3); TOTAL PROTEIN 6.7 g/dl (6.1-8.1)
[2018-07-09 09:28] LABS: RETICULOCYTE COUNT # 0.037 X10^6 (0.020-0.110); RETICULOCYTE COUNT % 1.8 % (0.5-1.5)
[2018-07-09 09:42] LABS: LACTATE DEHYDROGENASE 565 IU/L (313-618)
[2018-07-09 10:02] LABS: HEPATITIS B SURFACE ANTIGEN NEGATIVE (NEGATIVE)
[2018-07-09 10:19] LABS: HEPATITIS B CORE ANTIBODY REACTIVE (NEGATIVE)
[2018-07-09 11:27] LABS: ANISOCYTOSIS 3+ (0-0); EOSINOPHILS % (M) 2 % (0-7); LYMPHOCYTES #M 1.4 10^3/ul (0.8-2.9); LYMPHOCYTES % (M) 70 % (15-51); METAMYELOCYTES %M 2 % (0-0); MICROCYTOSIS 3+ (0-0); MONOCYTES % (M) 4 % (0-11); PLATELET ESTIMATE DECREASED; POIKILOCYTOSIS 1+ (0-0); POLYCHROMASIA 2+ (0-0); REACTIVE LYMPHOCYTES% (M) 2 % (0-0); SEGMENTED NEUTROPHILS (M) % 20 % (39-77); SMUDGE%M 2 % (0-0)
[2018-07-09 11:53] LABS: HEPATITIS B SURFACE ANTIBODY INDETERMINATE (NEGATIVE)
[2018-07-09 12:30] LABS: IMMEDIATE SPIN CROSSMATCH 1 2
[2018-07-09] MEDS: POTASSIUM CHLORIDE (SR) 20 MEQ TAB PO (13:32)
[2018-07-09] MEDS: FENTAnyl 50 MCG/ML VIAL (15:22)
[2018-07-09] MEDS: LIDOCAINE 1% (MPF) 5 ML VIAL (15:23)
[2018-07-09] MEDS: MIDAZOLAM 1 MG/ML 2 ML INJ (15:30)
[2018-07-09] MEDS: SOD CHLORIDE 0.9% 250 ML IV* (19:00)
[2018-07-09] MEDS: LORAZEPAM 1 MG TAB PO (20:18)
[2018-07-09] MEDS: DOCUSATE SODIUM 100 MG CAP PO (20:18)
[2018-07-10] MEDS: PANTOPRAZOLE 40 MG INJ IV (05:42)
[2018-07-10] MEDS: NACL 0.9% 3 ML SYG IV (05:42)
[2018-07-10 06:40] LABS: ADD MAN DIFF? NO
[2018-07-10 06:44] LABS: WHITE BLOOD COUNT 2.7 10^3/ul (4.8-10.8)
[2018-07-10 06:44] LABS: ABNORMAL IP MESSAGE 1; HEMATOCRIT 28.1 % (37.0-47.0); HEMOGLOBIN 9.5 g/dl (12.0-16.0); MEAN CORPUSCULAR HEMOGLOBIN 30.8 pg (29.0-33.0); MEAN CORPUSCULAR HGB CONC 33.8 g/dl (32.0-37.0); MEAN CORPUSCULAR VOLUME 91.2 fl (82.0-101.0); MEAN PLATELET VOLUME 10.9 fl (7.4-10.4); NUCLEATED RED BLOOD CELLS% 1.1 /100WBC (0.0-0.0); PLATELET COUNT 57 10^3/UL (140-415); RED BLOOD COUNT 3.08 10^6/ul (4.20-5.40)
[2018-07-10 06:47] LABS: POSITIVE DIFF @See below
[2018-07-10 08:09] LABS: ANISOCYTOSIS 1+ (0-0); BAND NEUTROPHILS % (M) 2 % (0-4); BASOPHILS % (M) 1 % (0-2); EOSINOPHILS % (M) 1 % (0-7); GIANT THROMBO% (M) 1 % (0-0); LYMPHOCYTES #M 1.5 10^3/ul (0.8-2.9); LYMPHOCYTES % (M) 58 % (15-51); METAMYELOCYTES %M 1 % (0-0); MONOCYTE #M 0.2 10^3/ul (0.3-0.9); MONOCYTES % (M) 8 % (0-11); PLATELET ESTIMATE DECREASED; PROMYELOCYTES % (M) 2 % (0-0); REACTIVE LYMPHOCYTES% (M) 2 % (0-0); SEG NEUT #M 0.7 10^3/ul (1.6-7.5); SEGMENTED NEUTROPHILS (M) % 25 % (39-77); SMUDGE%M 26 % (0-0)
[2018-07-10 09:56] LABS: HAPTOGLOBIN 167 mg/dL (43-212)
[2018-07-11] MEDS ORDERED: PANTOPRAZOLE (EC) 40 MG TAB PO (06:00)
[2018-07-13 15:42] LABS: HEPATITIS B DELTA ANTIBODY NEGATIVE
== END 2018-07-10 19:30 | disposition home or self-care (01) | DRG 812 ==
LOC: E/R 10:25 → 2NE 12:09
PROC: 30233R1 Transfusion of Nonautologous Platelets into Peripheral Vein, Percutaneous Approach (ICD-10-PCS; 2018-07-08)
PROC: 30233N1 Transfusion of Nonautologous Red Blood Cells into Peripheral Vein, Percutaneous Approach (ICD-10-PCS; principal; 2018-07-09)
PROC: 07DR3ZX Extraction of Iliac Bone Marrow, Percutaneous Approach, Diagnostic (ICD-10-PCS; 2018-07-09)
DX: D46.C Myelodysplastic syndrome with isolated del(5q) chromosomal abnormality (principal); D61.818 Other pancytopenia; B19.10 Unspecified viral hepatitis B without hepatic coma; R44.0 Auditory hallucinations; D61.9 Aplastic anemia, unspecified; F29 Unspecified psychosis not due to a substance or known physiological condition; I10 Essential (primary) hypertension
CPT/HCPCS: 36415; 36430; 77012; 80053; 80307; 81001; 81025; 83010; 83615; 85025; 85045; 86644; 86692; 86704; 86706; 86850; 86880; 86900; 86901; 86920; 86945; 87340; 88305; 88311; 88313; 88341; 88342; 99291-25

== ENCOUNTER 2018-09-11 14:25 | Inpatient (IN) | payer OTHER ==
[2018-09-11] MEDS: morphine 4 MG/ML VIAL IV (16:45)
[2018-09-11] MEDS: ONDANSETRON 4 MG INJ IV (16:45)
[2018-09-11 16:51] LABS: WHITE BLOOD COUNT 3.4 10^3/ul (4.8-10.8)
[2018-09-11 16:51] LABS: ABNORMAL IP MESSAGE 1; HEMATOCRIT 20.7 % (37.0-47.0); HEMOGLOBIN 7.2 g/dl (12.0-16.0); MEAN CORPUSCULAR HEMOGLOBIN 32.3 pg (29.0-33.0); MEAN CORPUSCULAR HGB CONC 34.8 g/dl (32.0-37.0); MEAN CORPUSCULAR VOLUME 92.8 fl (82.0-101.0); MEAN PLATELET VOLUME 9.8 fl (7.4-10.4); RED BLOOD COUNT 2.23 10^6/ul (4.20-5.40); RED CELL DISTRIBUTION WIDTH 20.3 % (11.5-14.5)
[2018-09-11 16:56] LABS: POSITIVE DIFF @See below
[2018-09-11 16:57] LABS: ADD MAN DIFF? YES
[2018-09-11 16:58] LABS: PLATELET COUNT 12 10^3/UL (140-415)
[2018-09-11 17:20] LABS: ALANINE AMINOTRANSFERASE 157 IU/L (13-69); ALBUMIN 4.6 g/dl (3.3-4.9); ALBUMIN/GLOBULIN RATIO 1.15; ALKALINE PHOSPHATASE 194 IU/L (42-121); ANION GAP 9 (5-13); ASPARTATE AMINO TRANSFERASE 73 IU/L (15-46); BILIRUBIN,INDIRECT 0.3 mg/dl (0-1.1); BILIRUBIN,TOTAL 0.3 mg/dl (0.2-1.3); BLOOD UREA NITROGEN 30 mg/dl (7-20); CARBON DIOXIDE 31 mmol/L (21-31); CHLORIDE 105 mmol/L (97-110); CREATINE KINASE 53 IU/L (23-200); CREATININE 0.69 mg/dl (0.44-1.00); Estimated GFR > 60 mL/min (>60); GLUCOSE 79 mg/dl (70-220); POTASSIUM 4.4 mmol/L (3.5-5.1); SODIUM 145 mmol/L (135-144); TOTAL PROTEIN 8.6 g/dl (6.1-8.1)
[2018-09-11 17:21] LABS: INR 0.87; PROTIME 11.9 Sec (11.9-14.9); PT RATIO 0.9
[2018-09-11 17:22] LABS: PARTIAL THROMBOPLASTIN TIME 35.4 Sec (23.0-35.0)
[2018-09-11 17:27] LABS: ANISOCYTOSIS 2+ (0-0); BAND NEUTROPHILS #M 0.2 10^3/ul (0.0-0.6); BAND NEUTROPHILS % (M) 8 % (0-4); LYMPHOCYTES #M 1.3 10^3/ul (0.8-2.9); LYMPHOCYTES % (M) 39 % (15-51); MICROCYTOSIS 2+ (0-0); MONOCYTE #M 0.1 10^3/ul (0.3-0.9); MONOCYTES % (M) 5 % (0-11); PLATELET ESTIMATE SIG DECREASED; POLYCHROMASIA 1+ (0-0); REACTIVE LYMPHOCYTES% (M) 1 % (0-0); SEG NEUT #M 1.6 10^3/ul (1.6-7.5); SEGMENTED NEUTROPHILS (M) % 47 % (39-77); SMUDGE%M 5 % (0-0)
[2018-09-11 17:30] LABS: B-TYPE NATRIURETIC PEPTIDE < 11 PG/ML (0-125); CK INDEX 5.1; CK-MB 2.69 ng/ml (0.0-2.4); TROPONIN-I < 0.012 ng/ml (0.000-0.120)
[2018-09-11] MEDS: LORAZEPAM 2 MG INJ IV (17:50)
[2018-09-11] MEDS ORDERED: ONDANSETRON 4 MG INJ IV ×2 (18:00→23:30)
[2018-09-12 00:58] LABS: TYPE AND SCREEN 1
[2018-09-12] MEDS: DIPHENHYDRAMINE 50 MG INJ IV (01:12)
[2018-09-12] MEDS: ACETAMINOPHEN 325 MG TAB PO ×2 (01:13→10:19)
[2018-09-12 01:47] LABS: TROPONIN-I < 0.012 ng/ml (0.000-0.120)
[2018-09-12] MEDS: LORAZEPAM 1 MG TAB PO (01:58)
[2018-09-12] MEDS: PANTOPRAZOLE (EC) 40 MG TAB PO (05:30)
[2018-09-12] MEDS: DOCUSATE SODIUM 100 MG CAP PO (05:30)
[2018-09-12 06:03] LABS: WHITE BLOOD COUNT 4.2 10^3/ul (4.8-10.8)
[2018-09-12 06:03] LABS: ABNORMAL IP MESSAGE 1; HEMATOCRIT 20.5 % (37.0-47.0); HEMOGLOBIN 7.1 g/dl (12.0-16.0); MEAN CORPUSCULAR HEMOGLOBIN 31.6 pg (29.0-33.0); MEAN CORPUSCULAR HGB CONC 34.6 g/dl (32.0-37.0); MEAN CORPUSCULAR VOLUME 91.1 fl (82.0-101.0); PLATELET COUNT 74 10^3/UL (140-415); RED BLOOD COUNT 2.25 10^6/ul (4.20-5.40); RED CELL DISTRIBUTION WIDTH 19.8 % (11.5-14.5)
[2018-09-12 06:18] LABS: ADD MAN DIFF? YES; POSITIVE DIFF @See below
[2018-09-12 06:36] LABS: TROPONIN-I < 0.012 ng/ml (0.000-0.120)
[2018-09-12 07:02] LABS: ANION GAP 10 (5-13); BLOOD UREA NITROGEN 23 mg/dl (7-20); CALCIUM 10.2 mg/dl (8.4-10.2); CARBON DIOXIDE 27 mmol/L (21-31); CHLORIDE 106 mmol/L (97-110); CREATININE 0.76 mg/dl (0.44-1.00); Estimated GFR > 60 mL/min (>60); GLUCOSE 101 mg/dl (70-220); POTASSIUM 4.5 mmol/L (3.5-5.1); SODIUM 143 mmol/L (135-144)
[2018-09-12 08:50] LABS: ANISOCYTOSIS 2+ (0-0); BAND NEUTROPHILS #M 0.7 10^3/ul (0.0-0.6); BAND NEUTROPHILS % (M) 19 % (0-4); HYPOCHROMASIA 1+ (0-0); LYMPHOCYTES #M 1.3 10^3/ul (0.8-2.9); LYMPHOCYTES % (M) 31 % (15-51); MICROCYTOSIS 1+ (0-0); MONOCYTES % (M) 2 % (0-11); PLATELET ESTIMATE DECREASED; POLYCHROMASIA 1+ (0-0); SEGMENTED NEUTROPHILS (M) % 48 % (39-77); SMUDGE%M 22 % (0-0)
[2018-09-12] MEDS: POLYETHYLENE GLYCOL 17 GM PACKET PO (10:19)
[2018-09-12 11:07] LABS: WHITE BLOOD COUNT 4.7 10^3/ul (4.8-10.8)
[2018-09-12 11:07] LABS: ABNORMAL IP MESSAGE 1; HEMATOCRIT 21.5 % (37.0-47.0); HEMOGLOBIN 7.4 g/dl (12.0-16.0); MEAN CORPUSCULAR HEMOGLOBIN 31.4 pg (29.0-33.0); MEAN CORPUSCULAR HGB CONC 34.4 g/dl (32.0-37.0); MEAN CORPUSCULAR VOLUME 91.1 fl (82.0-101.0); MEAN PLATELET VOLUME 10.7 fl (7.4-10.4); PLATELET COUNT 75 10^3/UL (140-415); RED BLOOD COUNT 2.36 10^6/ul (4.20-5.40); RED CELL DISTRIBUTION WIDTH 20.4 % (11.5-14.5)
[2018-09-12 11:08] LABS: ADD MAN DIFF? YES; POSITIVE DIFF @See below
[2018-09-12 11:43] LABS: ANISOCYTOSIS 2+ (0-0); BAND NEUTROPHILS #M 0.6 10^3/ul (0.0-0.6); BAND NEUTROPHILS % (M) 14 % (0-4); HYPOCHROMASIA 1+ (0-0); LYMPHOCYTES #M 1.1 10^3/ul (0.8-2.9); LYMPHOCYTES % (M) 24 % (15-51); MONOCYTE #M 0.2 10^3/ul (0.3-0.9); MONOCYTES % (M) 5 % (0-11); PLATELET ESTIMATE DECREASED; POLYCHROMASIA 1+ (0-0); SEG NEUT #M 2.7 10^3/ul (1.6-7.5); SEGMENTED NEUTROPHILS (M) % 57 % (39-77); SMUDGE%M 9 % (0-0)
[2018-09-12 14:33] LABS: IMMEDIATE SPIN CROSSMATCH 1 2
[2018-09-12] MEDS ORDERED: NITROGLYCERIN (SL) 0.4 MG TAB SL (18:00)
[2018-09-12 20:30] LABS: AMMONIA < 9 umol/l (9-30)
[2018-09-12] MEDS: MELATONIN 5 MG TABLET PO (21:05)
[2018-09-13] MEDS: PANTOPRAZOLE (EC) 40 MG TAB PO (05:45)
[2018-09-13] MEDS: DOCUSATE SODIUM 100 MG CAP PO (05:45)
[2018-09-13 06:41] LABS: ADD MAN DIFF? NO
[2018-09-13 06:45] LABS: ABNORMAL IP MESSAGE 1; BASOPHILS % 0.3 % (0.0-2.0); EOSINOPHILS % 0.3 % (0.0-7.0); HEMATOCRIT 26.2 % (37.0-47.0); HEMOGLOBIN 9.1 g/dl (12.0-16.0); LYMPHOCYTES # 1.8 10^3/ul (0.8-2.9); LYMPHOCYTES % 54.3 % (15.0-51.0); MEAN CORPUSCULAR HEMOGLOBIN 31.2 pg (29.0-33.0); MEAN CORPUSCULAR HGB CONC 34.7 g/dl (32.0-37.0); MEAN CORPUSCULAR VOLUME 89.7 fl (82.0-101.0); MEAN PLATELET VOLUME 11.2 fl (7.4-10.4); MONOCYTE # 0.3 10^3/ul (0.3-0.9); MONOCYTES % 7.7 % (0.0-11.0); NEUTROPHIL # 1.3 10^3/ul (1.6-7.5); NEUTROPHILS % 37.1 % (39.0-77.0); PLATELET COUNT 65 10^3/UL (140-415); RED BLOOD COUNT 2.92 10^6/ul (4.20-5.40); RED CELL DISTRIBUTION WIDTH 18.5 % (11.5-14.5)
[2018-09-13 06:45] LABS: WHITE BLOOD COUNT 3.4 10^3/ul (4.8-10.8)
[2018-09-13 07:15] LABS: CHOLESTEROL 241 mg/dl (100-200)
[2018-09-13 07:15] LABS: CHOL/HDL RATIO 3.3 RATIO; HDL CHOLESTEROL 72 mg/dl (37-92); LDL CHOLESTEROL,CALCULATED 140 mg/dl; TRIGLYCERIDES 144 mg/dl (0-149)
[2018-09-13] MEDS: MAGNESIUM HYDROXIDE 30ML CUP PO (10:30)
[2018-09-13] MEDS ORDERED: ZOLPIDEM 5 MG TAB PO (10:30)
== END 2018-09-13 16:00 | disposition home or self-care (01) | DRG 880 ==
LOC: E/R 14:25 → 6WM 17:41
PROVIDERS: Pediatrics
PROC: 30233N1 Transfusion of Nonautologous Red Blood Cells into Peripheral Vein, Percutaneous Approach (ICD-10-PCS; 2018-09-11)
PROC: 6A550Z2 Pheresis of Platelets, Single (ICD-10-PCS; principal; 2018-09-12)
DX: F41.9 Anxiety disorder, unspecified (principal); D61.89 Other specified aplastic anemias and other bone marrow failure syndromes; B19.10 Unspecified viral hepatitis B without hepatic coma; D61.818 Other pancytopenia; D46.9 Myelodysplastic syndrome, unspecified; I10 Essential (primary) hypertension; R00.0 Tachycardia, unspecified; M19.90 Unspecified osteoarthritis, unspecified site; F32.9 Major depressive disorder, single episode, unspecified; R04.0 Epistaxis; R07.89 Other chest pain; R10.13 Epigastric pain; Z86.19 Personal history of other infectious and parasitic diseases
CPT/HCPCS: 36415; 36430; 71045; 76700; 80048; 80053; 80061; 82140; 82550; 82553; 83880; 84484; 85025; 85610; 85730; 86644; 86850; 86900; 86901; 86920; 86945; 87081; 93005; 93306; 96374; 96375; 99285-25

== ENCOUNTER 2018-11-30 10:28 | Emergency (ER) | payer OTHER ==
[2018-11-30 13:35] LABS: WHITE BLOOD COUNT 2.5 10^3/ul (4.8-10.8)
[2018-11-30 13:35] LABS: ABNORMAL IP MESSAGE 1; HEMATOCRIT 19.8 % (37.0-47.0); MEAN CORPUSCULAR HEMOGLOBIN 34.5 pg (29.0-33.0); MEAN CORPUSCULAR HGB CONC 34.8 g/dl (32.0-37.0); MEAN PLATELET VOLUME 10.7 fl (7.4-10.4); NUCLEATED RED BLOOD CELLS% 1.2 /100WBC (0.0-0.0); RED CELL DISTRIBUTION WIDTH 22.1 % (11.5-14.5)
[2018-11-30 13:37] LABS: HEMOGLOBIN 6.9 g/dl (12.0-16.0)
[2018-11-30 13:38] LABS: ADD MAN DIFF? YES; PATH REVIEW? YES; PLATELET COUNT 12 10^3/UL (140-415); POSITIVE DIFF @See below
[2018-11-30 13:56] LABS: INR 0.93; PROTIME 12.6 Sec (11.9-14.9)
[2018-11-30 13:57] LABS: PARTIAL THROMBOPLASTIN TIME 29.1 Sec (23.0-35.0)
[2018-11-30 14:08] LABS: ALANINE AMINOTRANSFERASE 260 IU/L (13-69); ALBUMIN 4.3 g/dl (3.3-4.9); ALBUMIN/GLOBULIN RATIO 1.26; ALKALINE PHOSPHATASE 146 IU/L (42-121); ANION GAP 9 (5-13); ASPARTATE AMINO TRANSFERASE 99 IU/L (15-46); BILIRUBIN,INDIRECT 0.6 mg/dl (0-1.1); BILIRUBIN,TOTAL 0.6 mg/dl (0.2-1.3); BLOOD UREA NITROGEN 12 mg/dl (7-20); CALCIUM 9.7 mg/dl (8.4-10.2); CARBON DIOXIDE 26 mmol/L (21-31); CHLORIDE 107 mmol/L (97-110); CREATININE 0.58 mg/dl (0.44-1.00); Estimated GFR > 60 mL/min (>60); GLUCOSE 121 mg/dl (70-220); POTASSIUM 3.6 mmol/L (3.5-5.1); SODIUM 142 mmol/L (135-144); TOTAL PROTEIN 7.7 g/dl (6.1-8.1)
[2018-11-30 14:15] LABS: ANISOCYTOSIS 2+ (0-0); BAND NEUTROPHILS % (M) 1 % (0-4); BASOPHILS % (M) 1 % (0-2); ERYTHROBLAST% (NRBC) (M) 1 % (0-0); HYPOCHROMASIA 3+ (0-0); LYMPHOCYTES #M 1.3 10^3/ul (0.8-2.9); LYMPHOCYTES % (M) 54 % (15-51); MICROCYTOSIS 2+ (0-0); MONOCYTE #M 0.2 10^3/ul (0.3-0.9); MONOCYTES % (M) 8 % (0-11); PLATELET ESTIMATE SIG DECREASED; POLYCHROMASIA 3+ (0-0); REACTIVE LYMPHOCYTES% (M) 1 % (0-0); SEG NEUT #M 0.9 10^3/ul (1.6-7.5); SEGMENTED NEUTROPHILS (M) % 35 % (39-77); SMUDGE%M 11 % (0-0)
[2018-11-30] MEDS: DIPHENHYDRAMINE 50 MG INJ IV (15:26)
[2018-11-30 17:56] LABS: IMMEDIATE SPIN CROSSMATCH 1 2
[2018-11-30 21:13] LABS: TYPE AND SCREEN 1
== END 2018-12-01 00:15 | disposition home or self-care (01) ==
LOC: E/R 12-01 00:15
DX: D61.818 Other pancytopenia (principal); R06.02 Shortness of breath
CPT/HCPCS: 36430; 71045; 80053; 85025; 85384; 85610; 85730; 86644; 86850; 86900; 86901; 86920; 86945; 96374; 99285-25

== ENCOUNTER 2018-12-21 09:56 | Emergency (ER) | payer OTHER | END 2018-12-21 11:33 | disposition home or self-care (01) | LOC: E/R 09:56 | DX: Z45.2 Encounter for adjustment and management of vascular access device (principal) | CPT/HCPCS: 99282 ==